=== PATIENT | female | born 1960 | race Caucasian/White ===

== ENCOUNTER 2017-10-02 00:11 | Emergency (ER) | payer OTHER ==
[2017-10-02] MEDS ORDERED: INDOMETHACIN 50 MG CAPSULE PO ONE (00:17)
--- NOTE | 2017-10-02 00:19 | PDOC ---
History of Present Illness - General Chief Complaint: Pain, Acute Stated Complaint: GOUT LT FOOT History Source: Patient Exam Limitations: No Limitations - History of Present Illness Initial Comments: 10/02/17 00:23 This is a 57-year-old female who comes in complaining of acute flareup of her gout. Patient has a history of gout and has had 2 flareups over the last several years. Last flareup was approximately 5 years ago. Patient denies any other complaints. Patient said she ran out of her medication for the gout. PAST MEDICAL HISTORY: Eczema and gout PAST SURGICAL HISTORY: no significant history FAMILY HISTORY: no pertinant history SOCIAL HISTORY: Pt lives with family and is employed. MEDICATIONS: reviewed ALLERGIES: As per nursing notes Review of Systems General: No fevers or chills, no weakness, no weight loss HEENT: No change in vision. No sore throat,. No ear pain CardioVascular: No chest pain or shortness of breath Respiratory:No cough, or wheezing. Gastrointestinal: no nausea, vomitting, diarrhea or constipation, No rectal bleeding Genitourinary: No dysuria, hematuria, or frequency Musculoskeletal: Left great toe gout Neurologic: No headache, vertigo, dizziness or loss of consciousness Psychiatric: nor depression Skin: No rashes or easy bruising Endocrine: no increased thirst or abnormal weight change Allergic: no skin or latex allergy All other systems reviewed and normal Exam: General: Well-nourished well-developed individual, no acute distress HEENT: Throat: Normal, tonsils normal, no erythema or exudate Neck: Supple, no meningeal signs, no lymphadenopathy Eyes::Pupils equal reactive and round, extraocular motion intact Extremities: Warm, dry, no cyanosis, clubbing, or edema Left great toe: There is some swelling, warmth and mild erythema to the area consistent with gout Skin: No rashes Neuro: Alert and oriented x3, CN II - XII intact, nonfocal exam with normal strength, normal sensation, normal reflexes, normal gait, Psych: Normal mood and affect Assessment and plan: This is a 57-year-old female with history of gout who comes in with acute gout flare. Patient does not have any medication so is here for medications primarily. Patient denies any other complaints. Patient given Toradol IM here in the emergency room and she couldn't swallow the Indocin pill and will send a prescription to the pharmacy for tablets that she can crush Past History - Past Medical History Allergies/Adverse Reactions: Allergies Allergy/AdvReac Type Severity Reaction Status Date / Time nystatin [From Mycostatin] Allergy Verified 10/02/17 00:16 Home Medications: Ambulatory Orders Fenofibrate 150 mg PO DAILY 10/02/17 Lisinopril 20 mg PO DAILY 10/02/17 Naproxen [Naprosyn] 500 mg PO BID #30 tablet 10/02/17 Paroxetine HCl [Paxil -] 30 mg PO DAILY 10/02/17 Simvastatin 20 mg PO DAILY 10/02/17 *DC/Admit/Observation/Transfer Diagnosis at time of Disposition: Gout attack Qualifiers: Gout site: toe Gout etiology: unspecified cause Laterality: left Qualified Code (s): M10.9 - Gout, unspecified - Discharge Dispostion Disposition: HOME Condition at time of disposition: Stable - Prescriptions Prescriptions: Naproxen [Naprosyn] 500 mg PO BID #30 tablet - Referrals Referrals: Lupe Silva MD [Primary Care Provider] - - Patient Instructions Additional Instructions: For the gout take 1 Naprosyn twice a day. I sent a prescription to her pharmacy. Return to the emergency department immediately with ANY new, persistent or worsening symptoms. Continue any medications as previously prescribed by your physician. You should follow up with your primary doctor as soon as possible regarding today's emergency department visit. . Please make sure your doctor reviews the results of your emergency evaluation. Thank you for coming to the Emergency Department today for your care. It was a pleasure to see you today. Please note that your evaluation is INCOMPLETE until you follow-up with your doctor. - Post Discharge Activity
[2017-10-02 00:20] VITALS: BP 140/90; PULSE 81; TEMP 98; BMI 32.4
[2017-10-02] MEDS ORDERED: INDOMETHACIN 25 MG CAPSULE ONE (00:21)
[2017-10-02] MEDS ORDERED: KETOROLAC TROMETHAMINE 60 MG/2 ML VIAL IM ONE (00:22)
[2017-10-02] MEDS ORDERED: KETOROLAC TROMETHAMINE 60 MG/2 ML VIAL ONE (00:22)
== END 2017-10-02 00:33 | disposition home or self-care (01) ==
LOC: FER 00:11
PROC: 3E0333Z Introduction of Anti-inflammatory into Peripheral Vein, Percutaneous Approach (ICD-10-PCS; principal; 2017-10-02)
DX: M10.9 Gout, unspecified (principal)
CPT/HCPCS: 96372; 99282-25

== ENCOUNTER 2018-01-17 11:45 | Day surgery (SDC) | payer OTHER ==
[2018-01-16 14:39] VITALS: BMI 35.9
[2018-01-17 13:56] VITALS: TEMP 98.6
[2018-01-17 15:30] VITALS: BP 131/75; PULSE 73
[2018-01-17 15:42] LABS: BASO % 1.1 % (0-2.0); EOS % 1.8 % (0-4.5); HEMATOCRIT 39.1 % (32.4-45.2); LYMPH % 30.4 % (8-40); MCH 28.6 pg (25.7-33.7); MCHC 33.1 g/dl (32.0-36.0); MEAN CELL VOLUME 86.4 fl (80-96); MEAN PLT VOLUME 7.7 fl (7.5-11.1); MONO % 8.3 % (3.8-10.2); NEUT % 58.4 % (42.8-82.8); RBC 4.53 M/mm3 (3.60-5.2); RDW 13.8 % (11.6-15.6); WHITE BLOOD COUNT 4.4 K/mm3 (4.0-10.0)
[2018-01-17 16:47] LABS: PLATELET ESTIMATE ADEQUATE
[2018-01-17 17:33] LABS: ALBUMIN 3.3 g/dl (3.4-5.0); ALK PHOS 58 U/L (45-117); ANION GAP 10 (8-16); BILIRUBIN,TOTAL 0.5 mg/dL (0.2-1.0); BLOOD UREA NITROGEN 10 mg/dL (7-18); CHLORIDE 106 mmol/L (98-107); CO2 23 mmol/L (21-32); CREATININE 1.1 mg/dL (0.55-1.02); GLUCOSE,RANDOM 82 mg/dL (74-106); POTASSIUM 4.2 mmol/L (3.5-5.1); SGOT/AST 42 U/L (15-37); SGPT/ALT 31 U/L (12-78); SODIUM 139 mmol/L (136-145)
[2018-01-19 08:07] LABS: HBSAG SCREEN Negative (Negative); HEP B CORE AB, TOT Negative (Negative)
[2018-01-21 00:11] LABS: ATYPICAL pANCA <1:20 titer (Neg:<1:20)
--- NOTE | 2018-01-21 19:26 | PATH ---
Surgical Pathology Report Patient Name: GINNY STERN [facility]. Rec. #: [id number] /Age/Gender: 1960 (Age: 57) / F Account: [id number] Location: [facility]-ENDOSCOPY Taken: 01/17/2018 Received: 01/18/2018 Reported: 01/21/2018 Physicians: Ronald Angel D.O. Specimen(s) Received A: BX TERMINAL ILEUM B: BX CECUM C: BX RIGHT COLON D: BX TRANSVERSE COLON E: BX LEFT COLON F: BX SIGMOID G: BX RECTUM Clinical History Diarrhea, occult blood, colon screening Postoperative diagnosis: Colitis Final Diagnosis A. TERMINAL ILEUM, BIOPSY: TERMINAL ILEUM MUCOSA WITH ACTIVE CHRONIC ILEITIS AND NON-NECROTIZING GRANULOMA FORMATION IN THE LAMINA PROPRIA. B. CECUM, BIOPSY: SMALL INTESTINAL/COLONIC TRANSITIONAL MUCOSA WITH ACTIVE CHRONIC INFLAMMATION AND NON-NECROTIZING GRANULOMA FORMATION. C. RIGHT COLON, BIOPSY: COLONIC MUCOSA WITH MODERATE ACTIVE CHRONIC INFLAMMATION, NON-NECROTIZING GRANULOMA FORMATION, ACUTE CRYPTITIS, CRYPT ABSCESS, AND CRYPTAL DISTORTION. D. TRANSVERSE COLON, BIOPSY: COLONIC MUCOSA WITH MODERATE ACTIVE CHRONIC INFLAMMATION OF LAMINA PROPRIA, NON-NECROTIZING GRANULOMA FORMATION, ACUTE CRYPTITIS, AND CRYPTAL DISTORTION. E. LEFT COLON, BIOPSY: COLONIC MUCOSA WITH MODERATE ACTIVE CHRONIC INFLAMMATION OF LAMINA PROPRIA, NON-NECROTIZING GRANULOMA FORMATION, ACUTE CRYPTITIS, CRYPT ABSCESS, AND CRYPTAL DISTORTION. F. SIGMOID, BIOPSY: COLONIC MUCOSA WITH MODERATE ACTIVE CHRONIC INFLAMMATION OF LAMINA PROPRIA, NON-NECROTIZING GRANULOMA FORMATION, ACUTE CRYPTITIS, AND CRYPTAL DISTORTION. G. RECTUM, BIOPSY: COLONIC MUCOSA WITH ACTIVE CHRONIC INFLAMMATION AND NON-NECROTIZING GRANULOMA FORAMTION. COMMENT: Negative for dysplasia. AFB and PAS stain for fungus were negative in all specimens. The above histologic features are consistent with active chronic crypt destructive colitis pattern. This pattern, while characteristic of chronic idiopathic inflammatory bowel disease, is not specific. This may also be seen in chronic enteric infections, drug reactions, and parasitic infections. Please correlate clinically. Electronically Signed Angel Nixon M.D. Gross Description A. Received in formalin, labeled "terminal ileum" is a muñoz, irregular portion of soft tissue measuring 0.4 cm. in greatest dimension. The specimen is submitted in toto in one cassette. B. Received in formalin, labeled "cecum" is a muñoz, irregular portion of soft tissue measuring 0.3 cm. in greatest dimension. The specimen is submitted in toto in one cassette. C. Received in formalin, labeled "right colon" are multiple muñoz, irregular portions of soft tissue ranging in size from 0.1-0.2 cm. in greatest dimension. The specimens are submitted in toto in one cassette. D. Received in formalin, labeled "transverse colon" are 3 muñoz, irregular portions of soft tissue measuring 0.1 cm. in greatest dimension. The specimens are submitted in toto in one cassette. E. Received in formalin, labeled "left colon" are 2 muñoz, irregular portions of soft tissue measuring 0.2 cm. in greatest dimension. The specimens are submitted in toto in one cassette. F. Received in formalin, labeled "sigmoid" are multiple muñoz, irregular portions of soft tissue ranging in size from 0.1-0.2 cm. in greatest dimension. The specimens are submitted in toto in one cassette. G. Received in formalin, labeled "rectum" are 3 muñoz, irregular portions of soft tissue measuring 0.1 and 0.2 cm. in greatest dimension. The specimens are submitted in toto in [one] cassette. JACQUIE/01/18/2018 johnie01/18/2018
== END 2018-01-17 15:51 | disposition home or self-care (01) ==
LOC: JASU-ENDO 11:45
PROVIDERS: ATTEND Internal Medicine Gastroenterology
PROC: 0DBE8ZX Excision of Large Intestine, Via Natural or Artificial Opening Endoscopic, Diagnostic (ICD-10-PCS; principal; 2018-01-17 12:30)
DX: R19.7 Diarrhea, unspecified (principal); K64.8 Other hemorrhoids
CPT/HCPCS: 36415; 80053; 85025; 86140; 86256; 86480; 86671; 86704; 86706; 86708; 87045; 87046; 87116; 87177; 87206; 87209; 87340; 88305-TC; 88312-TC

== ENCOUNTER 2018-07-10 10:10 | Day surgery (SDC) | payer OTHER ==
[2018-07-10 10:56] VITALS: BMI 35.4
[2018-07-10 13:32] VITALS: TEMP 97.7
[2018-07-10 14:46] VITALS: BP 124/72; PULSE 59
--- NOTE | 2018-07-12 16:44 | PATH ---
Surgical Pathology Report Patient Name: GINNY STERN [facility]. Rec. #: [id number] /Age/Gender: 1960 (Age: 58) / F Account: [id number] Location: U-ENDOSCOPY Taken: 07/10/2018 Received: 07/11/2018 Reported: 07/12/2018 Physicians: Ronald Angel D.O. Specimen(s) Received A: BX DESCENDING COLON B: BX SIGMOID C: BX RECTUM Clinical History Follow up colitis Postoperative diagnosis: Resolved colitis Final Diagnosis A. DESCENDING COLON, BIOPSY: COLONIC MUCOSA WITH MODERATE CHRONIC ACTIVE COLITIS INCLUDING ACUTE CRYPTITIS, ARCHITECTURAL DISTORTION, AND NON-NECROTIZING GRANULOMA. NO DYSPLASIA IDENTIFIED. B. SIGMOID COLON, BIOPSY: COLONIC MUCOSA WITH MODERATE CHRONIC ACTIVE COLITIS INCLUDING ACUTE CRYPTITIS, ARCHITECTURAL DISTORTION, AND NON-NECROTIZING GRANULOMA. NO DYSPLASIA IDENTIFIED. C. RECTUM, BIOPSY: COLONIC MUCOSA WITH MILD CHRONIC ACTIVE PROCTITIS AND GRANULOMA FORMATION. NO DYSPLASIA IDENTIFIED. Comment: Findings are non-specific and may be seen in inflammatory bowel disease, infection, and chronic medications. Suggest clinical and endoscopic correlation. Electronically Signed Jenn Hilton M.D. Gross Description A. Received in formalin, labeled "biopsy descending colon" are 3 muñoz, irregular portions of soft tissue ranging from 0.1-0.3 cm. in greatest dimension. The specimens are submitted in toto in one cassette. B. Received in formalin, labeled "biopsy sigmoid" are 4 muñoz, irregular portions of soft tissue ranging from 0.2-0.4 cm. in greatest dimension. The specimens are submitted in toto in one cassette. C. Received in formalin, labeled "biopsy rectum" are 2 muñoz, irregular portions of soft tissue measuring 0.2 and 0.4 cm. in greatest dimension. The specimens are submitted in toto in one cassette. DL07/11/2018 saudi07/11/2018
== END 2018-07-10 15:02 | disposition home or self-care (01) ==
LOC: JASU-ENDO 10:10
PROVIDERS: ATTEND Internal Medicine Gastroenterology
PROC: 0DBN8ZX Excision of Sigmoid Colon, Via Natural or Artificial Opening Endoscopic, Diagnostic (ICD-10-PCS; 2018-07-10)
PROC: 0DBP8ZX Excision of Rectum, Via Natural or Artificial Opening Endoscopic, Diagnostic (ICD-10-PCS; 2018-07-10)
PROC: 0DBM8ZX Excision of Descending Colon, Via Natural or Artificial Opening Endoscopic, Diagnostic (ICD-10-PCS; principal; 2018-07-10 11:30)
DX: K52.9 Noninfective gastroenteritis and colitis, unspecified (principal); K64.8 Other hemorrhoids
CPT/HCPCS: 88305-TC